=== PATIENT | female | born 2000 | race Asian ===

== ENCOUNTER 2025-03-28 21:12 | Emergency (ER) | payer MEDICAID ==
[~2025-03-28] VITALS: Ht 162.6 cm; Wt 54.5 kg
[2025-03-28 22:10] LABS: PLATELET COUNT (AUTO) 238 K/uL (150-450); RED BLOOD CELL COUNT(AUTO) 5.03 MIL/uL (4.00-5.20); RED CELL DISTRIBUTION WIDTH 13.7 % (11.5-14.5); WHITE BLOOD COUNT (AUTO) 6.5 K/uL (4.5-11.0)
[2025-03-28 22:21] LABS: CALCIUM, TOTAL 9.6 mg/dL (8.8-10.5); CREATININE 0.71 mg/dL (0.60-1.30); GLOMERULAR FILTR. RATE CALC > 60 mL/min (>60); GLUCOSE,RANDOM 83 mg/dL (70-110); SODIUM SERUM 138 mmol/L (136-145); UREA NITROGEN, BLOOD 8 mg/dL (7-18)
[2025-03-28 22:26] LABS: ASPARTATE AMINOTRANSFERASE 16.0 U/L (15-37); TOTAL PROTEIN, SERUM 7.7 g/dL (6.4-8.2)
[2025-03-28] MEDS: ONDANSETRON HCL 4 MG/2 ML VIAL IVP ONE (23:10)
[2025-03-28] MEDS: SODIUM CHLORIDE 0.9% 1,000 ML IV ONE (23:10)
[2025-03-28] MEDS: KETOROLAC TROMETHAMINE 30 MG/ML VIAL IVP ONE (23:11)
[2025-03-28] MEDS: MORPHINE SULFATE 2 MG/ML SYRINGE IVP ONE (23:59)
[2025-03-28] MEDS: METOCLOPRAMIDE HCL 5 MG/ML 2 ML VIAL IVP ONE (23:59)
[2025-03-29 00:53] VITALS: BP 100/70; PULSE 80; RESP 16; TEMP 98; O2SAT 100
[2025-03-29] MEDS ORDERED: IBUP-1492 PO (01:16)
== END 2025-03-29 02:02 | disposition home or self-care (01) ==
LOC: EMS 21:12
DX: G43.909 Migraine, unspecified, not intractable, without status migrainosus (principal); Z88.8 Allergy status to other drugs, medicaments and biological substances
CPT/HCPCS: 99284; 96374; 96375; 96361; 80048; 80076; 85025; 36415; J1885; J1200; J2765; J2270; J2405; J7030